=== PATIENT | female | born 1990 | race Caucasian/White ===

== ENCOUNTER 2024-08-25 14:16 | Emergency (ER) | payer OTHER ==
[~2024-08-25] VITALS: Ht 66 cm; Wt 97.7 kg
[2024-08-25 14:27] VITALS: TEMP 98.2
[2024-08-25 18:10] VITALS: BP 113/58; PULSE 83
== END 2024-08-25 18:10 | disposition home or self-care (01) ==
LOC: COL.ER 14:16
DX: O26.892 Other specified pregnancy related conditions, second trimester (principal); R10.9 Unspecified abdominal pain; Z3A.20 20 weeks gestation of pregnancy